=== PATIENT | male | born 1980 ===

== ENCOUNTER 2016-12-04 12:36 | Emergency (ER) | payer BC, OTHER ==
[2016-12-04 13:38] VITALS: BP 131/87
--- NOTE | 2016-12-04 14:33 | UC ---
Back Pain HPI - HPI Summary HPI Summary: 5 DAYS AGO WAS BENDING OVER AND FELT HIS BACK PULL. PAIN HAS WORSENED SINCE THEN. NO NUMBNESS OR TINGLING OR SADDLE ANESTHESIA. ALSO WOKE UP THIS AM WITH RLQ PAIN. APPETITE IS DOWN. FEELS WARM. NO NAUSEA. - History of Current Complaint Chief Complaint: UCBackPain Stated Complaint: BACK AND STOMACH PAIN Time Seen by Provider: 12/04/16 14:13 Hx Obtained From: Patient Onset/Duration: Sudden Onset, Lasting Days, Still Present Timing: Constant Severity Initially: Moderate Severity Currently: Moderate Pain Intensity: 3 Pain Scale Used: 0-10 Numeric Back Pain: Is Discrete @ - RIGHT LOW BACK Character: Sharp Aggravating: Movement Alleviating: Rest Associated Signs And Symptoms: Positive: Abdominal Pain - Allergies/Home Medications Allergies/Adverse Reactions: Allergies Allergy/AdvReac Type Severity Reaction Status Date / Time No Known Allergies Allergy Verified 12/04/16 13:38 PMH/Surg Hx/FS Hx/Imm Hx Previously Healthy: Yes - Surgical History Surgical History: None - Family History Known Family History: Positive: Hypertension, Diabetes - Social History Alcohol Use: None Substance Use Type: None Smoking Status (MU): Never Smoked Tobacco Review of Systems Constitutional: Fever Respiratory: Negative Cardiovascular: Negative Gastrointestinal: Abdominal Pain Genitourinary: Negative Musculoskeletal: Decreased ROM, Myalgia All Other Systems Reviewed And Are Negative: Yes Physical Exam Triage Information Reviewed: Yes Appearance: Well-Appearing, No Pain Distress, Well-Nourished Vital Signs: Initial Vital Signs Temp 99.9 F 12/04/16 13:31 Pulse 93 12/04/16 13:31 Resp 18 12/04/16 13:31 BP 131/87 12/04/16 13:31 Pulse Ox 100 12/04/16 13:31 Vital Signs Reviewed: Yes Eyes: Positive: Conjunctiva Clear ENT: Positive: Hearing grossly normal Neck: Positive: Supple, Nontender, No Lymphadenopathy Respiratory Exam: Normal Cardiovascular Exam: Normal Abdomen Description: Positive: Soft, Other: - TTP RLQ WITH EQUIVOCAL REBOUND. NO RIGIDITY. Negative: Distended, Guarding Bowel Sounds: Positive: Present Musculoskeletal: Positive: No Edema Neurological: Positive: Alert Psychological: Positive: Age Appropriate Behavior Skin: Negative: rashes Back Pain Course/Dx - Course Course Of Treatment: WILL GIVE MEDS AND WORK NOTE FOR ACUTE BACK STRAIN. TO ER FOR FURTHER EVALUATION OF FEVER AND RLQ PAIN (R/O APPY). - Differential Dx/Diagnosis Provider Diagnoses: 1. ACUTE LOW BACK STRAIN. 2. RLQ PAIN - Physician Notifications Discussed Patient Care With: LAMAR JIMENEZ Time Discussed With Above Provider: 14:40 Instructed by Provider To: Transfer - TO [facility] [place] [facility] BY PRIVATE CAR Discharge - Discharge Plan Condition: Stable Disposition: TRANS HIGHER LVL OF CARE FAC Prescriptions: Cyclobenzaprine TAB* [Flexeril TAB*] 10 mg PO BID PRN #30 tab PRN Reason: Pain Naproxen [Naproxen EC] 500 mg PO BID PRN #30 tab PRN Reason: Pain Patient Education Materials: Low Back Strain (ED) Forms: *Work Release Referrals: No Primary Care Phys,NOPCP [Primary Care Provider] - Additional Instructions: GO DIRECTLY TO THE ER FOR FURTHER EVALUATION OF YOUR RIGHT LOWER ABDOMINAL PAIN. IF YOUR RETURN TO WORK STATUS NEEDS TO BE ADJUSTED BASED ON ER/HOSPITAL FINDINGS YOU MAY RECEIVE A NEW WORK NOTE.
== END 2016-12-04 14:57 | disposition short-term general hospital (02) ==
LOC: UCEAST 12:36
DX: S39.012A Strain of muscle, fascia and tendon of lower back, initial encounter (principal); X50.1XXA Overexertion from prolonged static or awkward postures, initial encounter; Y93.9 Activity, unspecified; Y92.9 Unspecified place or not applicable; R10.31 Right lower quadrant pain
CPT/HCPCS: 99202; G0463

== ENCOUNTER 2016-12-04 15:07 | Emergency (ER) | payer BC ==
--- NOTE | 2016-12-04 15:36 | ED ---
Abdominal Pain/Male - HPI Summary HPI Summary: 36 M presents with back pain and RLQ pain. Was seen in urgent care today and diagnosed with musculoskeletal lower back pain on right side. this pain started after lifting items a week ago. Urgent care sent home with flexeril. Starting today RLQ pain. He also admits to anorexia. He denies any flank pain and n/v/ d. He denies any previous abdominal surgeries. He denies any loss of bowel or bladder or saddle anaesthesia. He denies any numbness or tingling. - History of Current Complaint Chief Complaint: EDAbdPain Stated Complaint: LOWER RT ABD PAIN /CONV CARE Time Seen by Provider: 12/04/16 15:14 Pain Intensity: 4 - Allergies/Home Medications Allergies/Adverse Reactions: Allergies Allergy/AdvReac Type Severity Reaction Status Date / Time No Known Allergies Allergy Verified 12/04/16 13:38 PMH/Surg Hx/FS Hx/Imm Hx Endocrine/Hematology History: Denies: Hx Anticoagulant Therapy Respiratory History: Denies: Hx Asthma Infectious Disease History: No Infectious Disease History: Denies: History Other Infectious Disease, Traveled Outside the in Last 30 Days - Family History Known Family History: Positive: Hypertension, Diabetes - Social History Alcohol Use: None Substance Use Type: Reports: None Smoking Status (MU): Never Smoked Tobacco Review of Systems Negative: Fever Negative: Chest Pain Negative: Shortness Of Breath Positive: Abdominal Pain - RLQ. Negative: Vomiting, Diarrhea, Nausea Negative: dysuria, flank pain, hematuria Positive: Myalgia - back pain All Other Systems Reviewed And Are Negative: Yes Physical Exam Triage Information Reviewed: Yes Vital Signs On Initial Exam: Initial Vitals Temp Pulse Resp BP Pulse Ox 98.8 F 97 12 146/82 100 12/04/16 15:09 12/04/16 15:09 12/04/16 15:09 12/04/16 15:09 12/04/16 15:09 Vital Signs Reviewed: Yes Appearance: Positive: Well-Appearing Skin: Positive: Warm, Dry Head/Face: Positive: Normal Head/Face Inspection Eyes: Positive: Normal, EOMI, JOO, Conjunctiva Clear ENT: Positive: Normal ENT inspection, Pharynx normal, TMs normal Respiratory/Lung Sounds: Positive: Clear to Auscultation, Breath Sounds Present Cardiovascular: Positive: Normal, RRR Abdomen Description: Positive: Soft, Other: - tenderness to RLQ, pos rovsings, no rebound tenderness. Negative: CVA Tenderness (R), CVA Tenderness (L), Guarding Musculoskeletal: Positive: Strength/ROM Intact - of back, Other - no midline tenderness, tenderness to right side of back, neg SLR Diagnostics - Vital Signs Vital Signs Temp Pulse Resp BP Pulse Ox 12/04/16 15:09 98.8 F 97 12 146/82 100 - Laboratory Result Diagrams: 12/04/16 15:53 12/04/16 15:53 Lab Statement: Any lab studies that have been ordered have been reviewed, and results considered in the medical decision making process. - CT ab CT Interpretation: No Acute Changes CT Interpretation Completed By: Radiologist Abdominal Pain Fem Course/Dx - Course Course Of Treatment: 36 F presents with RLQ for a day and back pain, since at urgent care pain not midline given short course of muscle relaxers, admits to anorexia, denies any n/v/d, mild pain in RLQ, got labs and CT which was negative , will continue urgent care plan for back pain, explained RLQ not due to appendicitis, unknown cause will have follow up with primary, patient agrees with plan - Diagnoses Differential Diagnosis/HQI/PQRI: Appendicitis, Renal Colic, Urinary Tract Infection Provider Diagnoses: RLQ abdominal pain, Back pain Discharge - Discharge Plan Condition: Good Disposition: HOME Patient Education Materials: Abdominal Pain (ED) Referrals: [facility] [Outside] Additional Instructions: Your pain is not caused by any surgical emergency Drink small amounts of fluid and food as tolerated Take muscle relaxer as prescribed Take ibuprofen or Tylenol for pain as needed every 6 hours Follow up with primary within 5 days Return to ED if develop any new or worsening symptoms
[2016-12-04 16:05] LABS: Hematocrit 44 % (42-52); Hemoglobin 15.6 g/dl (14.0-18.0); Mean Corpuscular HGB Conc 35 g/dl (31-36); Mean Corpuscular Hemoglobin 30 pg (27-31); Mean Corpuscular Volume 84 fL (80-94); Mean Platelet Volume 8 um3 (7.4-10.4); Red Blood Count 5.25 10^6/ul (4.0-5.4); Red Cell Distribution Width 13 % (10.5-15)
[2016-12-04] MEDS: NS 0.9% 1000 ML* 2,000 ML IV ONE ×2 (16:07→16:11)
[2016-12-04 16:22] LABS: Albumin 4.5 g/dL (3.2-5.2); BUN/Creatinine Ratio 16.9 (8-20); Calcium 9.3 mg/dL (8.6-10.3); EGFR African American 125.8 (>60); EGFR Non-African American 97.8 (>60); Globulin 2.9 g/dL (2-4); Potassium 3.9 mmol/L (3.5-5.0); Total Bilirubin 0.9 mg/dL (0.2-1.0); Total Protein 7.4 g/dL (6.4-8.9)
[2016-12-04 16:23] LABS: Urine Bacteria 1+ (Absent); Urine Bilirubin Negative (Negative); Urine Glucose Negative (Negative); Urine Nitrite Negative (Negative)
[2016-12-04] MEDS ORDERED: Iohexol 300* (CONTRAST) 10 ML SDV IV ONE (17:15)
--- NOTE | 2016-12-04 17:46 | RAD ---
INDICATION: Right lower quadrant pain COMPARISON: None TECHNIQUE: Axial source images were obtained from the hemidiaphragms to the symphysis pubis following administration of oral and intravenous contrast. 130 mL Omnipaque 300 was utilized. Coronal and sagittal reconstructed images were acquired. Lung bases: The lung bases are clear. There is parenchymal tissue in the retroareolar left breast suspicious for gynecomastia. Recommend nonemergent clinical evaluation and management. Liver: The liver is normal in size. There are no masses. There is no ductal dilatation. Gallbladder: There are no calcified gallstones. There is no evidence of wall thickening or pericholecystic fluid. Spleen: The spleen is normal in size. There are no masses. Pancreas: There is no focal pancreatic mass or ductal dilatation. Adrenal glands: There is no evidence of adrenal mass. Kidneys: The kidneys are normal in size and position. There are prompt nephrograms and there is prompt excretion bilaterally. There are no renal parenchymal masses. There is no evidence of nephrolithiasis. Adenopathy: There is no evidence of adenopathy by size criteria. Fluid collections: There are no free or localized fluid collections. Vessels:There are no significant atherosclerotic changes involving the aorta. There is no focal aneurysm. The iliac vessels are normal in caliber. The IVC appears normal. GI tract: There are no acute CT bowel findings. There is no obstruction. The stomach and small bowel appear normal. The lower GI tract is normal. The cecum, ileocecal valve, and terminal ileum appear normal. The appendix is visualized and appear normal. Pelvic organs: The prostate and seminal vesicles appear normal Bladder: There are no bladder masses. Abdominal and pelvic soft tissues: Small fat-containing right inguinal hernia. Osseous structures: There are no acute osseous findings. Other: None IMPRESSION: 1. NO ACUTE CT FINDINGS. NO MASS OR INFLAMMATORY CHANGE. NORMAL APPENDIX. 2. SUSPECT LEFT SIDED GYNECOMASTIA
[2016-12-04 18:07] VITALS: BP 130/64
== END 2016-12-04 18:20 | disposition home or self-care (01) ==
LOC: ED 15:07
DX: R10.31 Right lower quadrant pain (principal); M54.5 Low back pain; M54.9 Dorsalgia, unspecified
CPT/HCPCS: 36415; 74177; 80053; 81003; 81015; 83690; 85025; 86141; 87086; 96360; 99282; Q9967